=== PATIENT | female | born 1965 | race Hispanic/Latino ===

== ENCOUNTER 2018-02-04 18:20 | Emergency (ER) | payer OTHER, SELFPAY ==
[2018-02-04] MEDS ORDERED: MORPHINE 4 MG/ML SYR ONE (19:18)
[2018-02-04] MEDS ORDERED: ONDANSETRON 4 MG/2 ML VIAL ONE (19:19)
[2018-02-04 19:37] LABS: Absolute Lymphocytes (CBC) 2.6 K/uL (0.7-4.9); Absolute Monocytes 0.4 K/uL (0.1-1.3); Absolute Neutrophil 2.5 K/uL (1.8-8.0); Basophils % 0.6 % (0-1.3); Eosinophils % 4.5 % (0-4.4); Hematocrit 37.3 % (36.0-45.0); Lymphocytes % 44.3 % (15.3-44.8); MCH 29.6 pg (27.0-35.0); MCV 85.7 fL (80-100); Monocytes % 6.7 % (3.3-12.3); RBC Red Blood Cell Count 4.35 M/uL (3.86-4.86)
[2018-02-04 19:38] LABS: Urine Blood TRACE (NEG); Urine Glucose NEGATIVE (NEG); Urine Protein NEGATIVE (NEG); Urine Specific Gravity 1.005 (1.005-1.030)
[2018-02-04 19:43] LABS: Urine Bacteria <20 /HPF (<20); Urine Culture Reflex Order NOT NEEDED; Urine RBC <5 /HPF (NONE SEEN)
[2018-02-04 20:12] LABS: ALT/SGPT 19 U/L (12-78); AST/SGOT 15 U/L (15-37); Albumin 3.9 g/dL (3.4-5.0); Alkaline Phosphatase 67 U/L (45-117); Amylase Level 50 U/L (25-115); BUN Blood Urea Nitrogen 10 mg/dL (7-18); Bicarbonate 27 mmol/L (21-32); Bilirubin Direct < 0.1 mg/dL (0-0.2); Bilirubin Total 0.3 mg/dL (0.2-1.0); Glucose Level 98 mg/dL (74-106); Lipase 153 U/L (73-393); Potassium 3.7 mmol/L (3.5-5.1); Protein, Total 6.9 g/dL (6.4-8.2); Sodium Level 143 mmol/L (136-145)
--- NOTE | 2018-02-04 21:31 | RAD REPORT ---
EXAM DESCRIPTION: CT - Abdomen Pelvis W Contrast - 02/04/2018 9:15 pm CLINICAL HISTORY: Back pain, right lower abdominal pain COMPARISON: CT study November 2014 TECHNIQUE: Biphasic, helical CT imaging of the abdomen and pelvis was performed following 100 ml non -ionic IV contrast. Oral contrast was given. All CT scans are performed using dose optimization technique as appropriate and may include automated exposure control or mA/KV adjustment according to patient size. FINDINGS: No suspicious findings in the lung bases. The liver, spleen, and pancreas show no suspicious findings. Gallbladder and biliary tree are also wi thout suspicious finding. Symmetric renal function is seen with no hydronephrosis or suspicious renal mass. No pyelonephritis o r acute renal process. No urinary bladder abnormality. IUD is in place within a normal-sized uterus. Two fundal faintly enhancing masses are present 2.5 and 2.4 cm in size. These are incidental fibroids . No ovarian or adnexal acute finding. Small 3 centimeter lateral left renal cyst is present. No dilated bowel loops or bowel wall thickening. No appendicitis. No hernia, mass or bulky lymphade nopathy. Small mesenteric lymph nodes are present. No adrenal abnormality. No suspicious bony findings. IMPRESSION: A few small mesenteric lymph nodes are present. No acute abdomen or pelvis finding. Nonacute findings are detailed in the body of the report.
[2018-02-04] MEDS ORDERED: KETOROLAC 30 MG/ML INJ ONE (21:40)
--- NOTE | 2018-02-04 21:45 | EDPHYS ---
Physician Documentation [facility] Name: Rosemary Woodall Age: 52 yrs Sex: Female : 1965 Arrival Date: 02/04/2018 Time: 18:21 Bed 30 Private MD: Claritza Khalil ED Physician Godwin Domingo HPI: 02/04 19:05 This 52 yrs old Female presents to ER via Ambulatory with complaints of jmm Abdominal Pain, Back Pain. 19:05 The patient presents with abdominal pain in the lower abdomen. Onset: The jmm symptoms/episode began/occurred gradually, 3 day(s) ago. The symptoms do not radiate. Associated signs and symptoms: Pertinent negatives: fever, vomiting. This is a 52 year old female with a history of DM that presents to the ED with lower abdominal pain beginning approx 3 days ago. Patient states the pain will come and go. Denies fever, vomiting, or diarrhea. Patient denies history of intraabdominal surgery. . 19:05 Patient states that the previous day she performed heavy lifting. Symptoms are jmm exacerbated with movement.. 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 - Social history:: Smoking status: Patient/guardian denies using tobacco. - Ebola Screening: : Patient denies travel to an Ebola-affected area in the 21 days before illness onset. ROS: 19:05 Constitutional: Negative for fever, chills, and weight loss. jmm 19:05 Cardiovascular: Negative for chest pain. 19:05 Respiratory: Negative for shortness of breath. 19:05 Abdomen/GI: Positive for abdominal pain, Negative for nausea and vomiting. 19:05 Back: Positive for radiated pain. 19:05 All other systems are negative. Exam: 19:05 Head/Face: atraumatic. jmm 19:05 Constitutional: The patient appears in no acute distress, alert, awake. 19:05 Cardiovascular: Rate: normal, Rhythm: regular. 19:05 Respiratory: the patient does not display signs of respiratory distress, Respirations: normal, Breath sounds: are clear throughout. 19:05 Abdomen/GI: Inspection: abdomen appears normal, Bowel sounds: normal, Palpation: soft, mild abdominal tenderness, in the right lower quadrant. 19:05 Musculoskeletal/extremity: ROM: intact in all extremities. 19:05 Skin: Appearance: Color: normal in color. 19:05 Neuro: Orientation: is normal, Mentation: is normal, Memory: is normal. 19:05 Psych: Behavior/mood is pleasant, cooperative. 19:05 Back: pain, that is moderate, of the right low back. [facility] Vital Signs: 18:46 BP 131 / 77; Pulse 70; Resp 18; Temp 98.4(O); Pulse Ox 99% on R/A; Weight 68.04 kg; 1 Height 5 ft. 4 in. (162.56 cm); Pain 9/10; 20:00 BP 123 / 72; Pulse 74; Resp 17; Pulse Ox 99% on R/A; kr2 21:42 BP 117 / 41; Pulse 74; Resp 17; Pulse Ox 99% on R/A; kr2 18:46 Body Mass Index 25.75 (68.04 kg, 162.56 cm) [facility] MDM: 19:05 Differential diagnosis: appendicitis, non-specific abd pain, colitis, muscle strain. [facility] 19:[address] [facility] 21:40 Data reviewed: vital signs, nurses notes, lab test result(s), radiologic studies, CT [facility] scan. Counseling: I had a detailed discussion with the patient and/or guardian regarding: the historical points, exam findings, and any diagnostic results supporting the discharge/admit diagnosis, the presence of at least one elevated blood pressure reading (>120/80) during this emergency department visit, lab results, radiology results, to return to the emergency department if symptoms worsen or persist or if there are any questions or concerns that arise at home. 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 Pain is point tender in the right lower abdomen and right lower lumbar region. Symptoms appear most likely related to musculoskeletal pain. Patient is encouraged to rest and follow up with PCP for further evaluation. Patient is also given early appendicitis return precautions. The patient and family understood and agree with the plan of care. . 02/04 19:08 Order name: Amylase, Serum; Complete Time: 20:30 [facility] 02/04 19:08 Order name: Basic Metabolic Panel; Complete Time: 20:30 [facility] 02/04 19:08 Order name: CBC with Diff; Complete Time: 19:40 [facility] 02/04 19:08 Order name: Creatinine for Radiology; Complete Time: 20:30 [facility] 02/04 19:08 Order name: Hepatic Function; Complete Time: 20:30 [facility] 02/04 19:08 Order name: Lipase; Complete Time: 20:30 [facility] 02/04 19:08 Order name: Urine Test (obtain specimen); Complete Time: 20:32 [facility] 02/04 19:08 Order name: Urine Microscopic Only; Complete Time: 19:46 [facility] 02/04 19:08 Order name: IV Saline Lock; Complete Time: 19:22 [facility] 02/04 19:08 Order name: CT Abd/Pelvis - W/Contrast; Complete Time: 21:36 [facility] 02/04 19:36 Order name: Urine Dipstick--Ancillary (enter results); Complete Time: 19:40 02/04 19:08 Order name: Labs collected and sent; Complete Time: 19:22 [facility] 02/04 19:08 Order name: Urine Dipstick-Ancillary (obtain specimen); Complete Time: 20:32 jmm Administered Medications: 19:21 Drug: morphine 4 mg Route: IVP; Site: right antecubital; kr2 20:16 Follow up: Response: No adverse reaction kr2 19:21 Drug: Zofran 4 mg Route: IVP; Site: right antecubital; kr2 20:16 Follow up: Response: No adverse reaction kr2 21:41 Drug: Ketorolac 30 mg Route: IVP; Site: right antecubital; kr2 21:55 Follow up: Response: No adverse reaction; Pain is decreased kr2 Disposition: 02/04/18 21:45 Discharged to Home. Impression: Abdominal wall strain, Upper abdominal pain, unspecified, Strain of muscle, fascia and tendon of lower back. - Condition is Stable. - Discharge Instructions: Abdominal Pain, Adult. - Prescriptions for ibuprofen 800 mg Oral tablet - take 1 tablet by ORAL route 3 times per day with food; 30 tablet. Cyclobenzaprine 10 mg Oral Tablet - take 1 tablet by ORAL route every 8 hours As needed; 30 tablet. - Medication Reconciliation Form, Thank You Letter, Antibiotic Education, Prescription Opioid Use form. - Follow up: Claritza Khalil; When: 2 - 3 days; Reason: Continuance of care. Addendum: 02/08/2018 07:02 Co-signature as Attending Physician, Godwin Domingo MD. r n Signatures: Dispatcher [employer] EDEvelyn Quevedo RN RN aj1 Brennan Major PA PA jmm Nieto, Roman, MD MD rn Reaves, Karey, RN RN kr2 Corrections: (The following items were deleted from the chart) 02/04 21:56 21:45 02/04/2018 21:45 Discharged to Home. Impression: Abdominal wall strain; Upper kr2 abdominal pain, unspecified; Strain of muscle, fascia and tendon of lower back. Condition is Stable. Forms are Medication Reconciliation Form, Thank You Letter, Antibiotic Education, Prescription Opioid Use. Follow up: Claritzanato Khalil; When: 2 - 3 days; Reason: Continuance of care. grey
--- NOTE | 2018-02-04 21:45 | ER ---
Nurse's Notes [facility] Name: Rosemary Woodall Age: 52 yrs Sex: Female : 1965 Arrival Date: 02/04/2018 Time: 18:21 Bed 30 Private MD: Claritza Khalil Diagnosis: Abdominal wall strain;Upper abdominal pain, unspecified;Strain of muscle, fascia and tendon of lower back Presentation: 02/04 18:44 Presenting complaint: Patient states: lower right quadrant abdominal pain that radiated aj1 to the back and is worse when she changes positions. Denies N/V/D. Denies dysuria, urinary frequency. Transition of care: patient was not received from another setting of care. Onset of symptoms was February 01, 2018. Risk Assessment: Do you want to hurt yourself or someone else? Patient reports no desire to harm self or others. Initial Sepsis Screen: Does the patient meet any 2 criteria? No. Patient's initial sepsis screen is negative. Does the patient have a suspected source of infection? No. Patient's initial sepsis screen is negative. Care prior to arrival: None. 18:44 Method Of Arrival: Ambulatory aj1 18:44 Acuity: JODI 3 aj1 Triage Assessment: 18:46 General: Appears in no apparent distress. comfortable, Behavior is calm, cooperative, aj1 appropriate for age. Pain: Complains of pain in right lower quadrant Pain radiates to right low back Pain currently is 9 out of 10 on a pain scale. Quality of pain is described as sharp. Neuro: Level of Consciousness is awake, alert, obeys commands, Oriented to person, place, time, situation, Speech is normal, Facial symmetry appears normal. Cardiovascular: Patient's skin is warm and dry. Respiratory: Airway is patent Respiratory effort is even, unlabored, Respiratory pattern is regular, symmetrical. GI: Abdomen is non-distended, Reports lower abdominal pain, Patient currently denies diarrhea, nausea, vomiting. : Denies burning with urination, urinary frequency. Derm: Skin is pink, warm \T\ dry. normal. Musculoskeletal: No signs and/or symptoms reported regarding the musculoskeletal system. Amputation of. 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 - Social history:: Smoking status: Patient/guardian denies using tobacco. - Ebola Screening: : Patient denies travel to an Ebola-affected area in the 21 days before illness onset. Screenin:23 Abuse screen: Denies threats or abuse. Denies injuries from another. Nutritional kr2 screening: No deficits noted. Tuberculosis screening: No symptoms or risk factors identified. Fall Risk None identified. Assessment: 19:00 General: Appears in no apparent distress. uncomfortable, well groomed, well developed, kr2 well nourished, Behavior is calm, cooperative, appropriate for age. Pain: Complains of pain in right lower quadrant Pain currently is 5 out of 10 on a pain scale. Quality of pain is described as sharp, shooting, Is continuous, Alleviated by rest, Aggravated by increased activity. Neuro: Level of Consciousness is awake, alert, obeys commands, Oriented to person, place, time, situation, Appropriate for age. Cardiovascular: Capillary refill < 3 seconds in bilateral fingers Patient's skin is warm and dry. Respiratory: Airway is patent Respiratory effort is even, unlabored, Respiratory pattern is regular, symmetrical. : Denies burning with urination. EENT: Nares are clear bilaterally Oral mucosa is moist. Derm: Skin is intact, is healthy with good turgor, Skin is pink, warm \T\ dry. Musculoskeletal: Circulation, motion, and sensation intact. 19:23 GI: Bowel sounds present X 4 quads. Abd is soft X 4 quads Reports lower abdominal pain. kr2 20:00 Reassessment: Patient appears in no apparent distress at this time. Patient and/or kr2 family updated on plan of care and expected duration. Pain level reassessed. Patient is alert, oriented x 3, equal unlabored respirations, skin warm/dry/pink. Patient states feeling better. Patient states symptoms have improved. 21:00 Reassessment: No changes from previously documented assessment. kr2 21:42 Reassessment: Patient appears in no apparent distress at this time. Patient and/or kr2 family updated on plan of care and expected duration. Pain level reassessed. Patient is alert, oriented x 3, equal unlabored respirations, skin warm/dry/pink. Patient states feeling better. Vital Signs: 18:46 BP 131 / 77; Pulse 70; Resp 18; Temp 98.4(O); Pulse Ox 99% on R/A; Weight 68.04 kg; aj1 Height 5 ft. 4 in. (162.56 cm); Pain 9/10; 20:00 BP 123 / 72; Pulse 74; Resp 17; Pulse Ox 99% on R/A; kr2 21:42 BP 117 / 41; Pulse 74; Resp 17; Pulse Ox 99% on R/A; kr2 18:46 Body Mass Index 25.75 (68.04 kg, 162.56 cm) aj1 ED Course: 18:21 Patient arrived in ED. as 18:22 Claritza Khalil is Private Physician. as 18:45 Triage completed. aj1 18:46 Arm band placed on Patient placed in an exam room. aj1 18:49 Brennan Major PA is PHCP. jmm 18:49 Godwin Domingo MD is Attending Physician. jmm 18:59 Jennifer Nevarez, EVELINA is Primary Nurse. kr2 19:24 Patient has correct armband on for positive identification. Bed in low position. Call kr2 light in reach. Side rails up X 1. Pulse ox on. NIBP on. Door closed. Warm blanket given. Head of bed elevated. 19:30 Inserted saline lock: 22 gauge in right antecubital area, using aseptic technique. tt1 Blood collected. 19:47 Inserted saline lock: 22 gauge in left antecubital area, using aseptic technique. aj 21:14 CT completed. Patient moved to CT via wheelchair. Patient moved back from CT. cw1 21:15 CT Abd/Pelvis - W/Contrast In Process Unspecified. EDMS 21:43 Claritza Khalil is Referral Physician. jmm 21:55 No provider procedures requiring assistance completed. IV discontinued, intact, kr2 bleeding controlled, No redness/swelling at site. Pressure dressing applied. Administered Medications: 19:21 Drug: morphine 4 mg Route: IVP; Site: right antecubital; kr2 20:16 Follow up: Response: No adverse reaction kr2 19:21 Drug: Zofran 4 mg Route: IVP; Site: right antecubital; kr2 20:16 Follow up: Response: No adverse reaction kr2 21:41 Drug: Ketorolac 30 mg Route: IVP; Site: right antecubital; kr2 21:55 Follow up: Response: No adverse reaction; Pain is decreased kr2 Outcome: 21:45 Discharge ordered by . shayne 21:55 Discharged to home ambulatory, with family. kr2 21:55 Condition: good 21:55 Discharge instructions given to patient, family, Instructed on discharge instructions, follow up and referral plans. medication usage, Demonstrated understanding of instructions, follow-up care, medications, Prescriptions given X 2. 21:56 Patient left the ED. kr2 Signatures: Dispatcher [employer] EDMS Evelyn Camarena RN RN aj1 Lola Dalton RN RN aj Brennan Major PA PA jmm Martinez, Amelia as Woodley, Crystal cw1 Carla Miles tt1 Jennifer Nevarez RN RN kr2 Corrections: (The following items were deleted from the chart) 20:22 20:20 Inserted saline lock: 22 gauge in right antecubital area, using aseptic tt1 technique. Blood collected. tt1
== END 2018-02-04 21:56 | disposition home or self-care (01) ==
LOC: ER 18:20
DX: S39.011A Strain of muscle, fascia and tendon of abdomen, initial encounter (principal); S39.012A Strain of muscle, fascia and tendon of lower back, initial encounter; X50.0XXA Overexertion from strenuous movement or load, initial encounter; Y93.9 Activity, unspecified; Y92.9 Unspecified place or not applicable; E11.9 Type 2 diabetes mellitus without complications
CPT/HCPCS: 36415; 74177; 80048; 80076; 81003; 81015; 82150; 83690; 85025; 96374; 96375; 99284; J2405; Q9967

== ENCOUNTER 2021-10-20 12:39 | Emergency (ER) | payer OTHER, BC ==
--- OUTSIDE RECORDS SUMMARY | 2021-10-20 12:44 | XMS REPORT | Continuity of Care Document ---
:1965 Author Organization [facility] t Address [address] [place] [address] Care Team Providers Name Role Phone Simran Claritza Pierce Primary Care Physician Simran Attending Clinician Unavailable Nadege Prakash MD Attending Clinician Doctor Unassigned, Name Attending Clinician Unavailable NADEGE PRAKASH Attending Clinician Unavailable Payers Payer Name Policy Type Policy Number Effective Date Expiration Date S aranza [employer] [id number] 2019 00:00:00 Problems Condition Condition Condition Status Onset Resolution Last Treating Co mments Source Name Details Category Date Date Treatment Clinician Date Postmenopa Postmenopa Disease Active U nivers usal usal 9-08 ity of bleeding bleeding 00:00: [address] Obesity Obesity Disease Active Univers (BMI (BMI 6-24 ity of 30-39.9) 30-39.9) 00:00: [address] Allergies, Adverse Reactions, Alerts Allergy Allergy Status Severity Reaction(s) Onset Inactive Treating Comm ents Source Name Type Date Date Clinician NO KNOWN Drug Active Univers ALLERGIE Class ity of S [facility] Social History Social Habit Start Date Stop Date Quantity Comments Source Exposure to Not sure [facility] SARS-CoV-2 (event) Medica l Branch Alcohol intake 2021-04-15 2021-04-15 0 /d [facility] 00:00:00 00:00:00 [facility] Sex Ass[birth year] [facility] of [place] 00:00:00 00:00:00 Medical Branch Smoking Status Start Date Stop Date Source Never smoker [facility] Medical Branch Medications Ordered Filled Start Stop Current Ordering Indication Dosage Frequency Signature Comments Components Source Medication Medication Date Date Medication? Clinician (SIG) Name Name miSOPROStoL 2020-08 Yes Take 1 Univ ers 200 mcg 1-02 tablet by ity of tablet 00:00: mouth the [place] night Medical before Branch procedure and 1 tablet by mouth the morning of procedure. miSOPROStoL 2020-08 Yes Take 1 Univ ers 200 mcg 1-02 tablet by ity of tablet 00:00: mouth the [place] night Medical before Branch procedure and 1 tablet by mouth the morning of procedure. miSOPROStoL 2020-08 Yes Take 1 Univ ers 200 mcg 1-02 tablet by ity of tablet 00:00: mouth the [place] night Medical before Branch procedure and 1 tablet by mouth the morning of procedure. miSOPROStoL 2020-08 Yes Take 1 Univ ers 200 mcg 1-02 tablet by ity of tablet 00:00: mouth the [place] night Medical before Branch procedure and 1 tablet by mouth the morning of procedure. No known No Univers medications 9-08 ity of 18:11: [place] 40 [facility] Meloxicam Meloxicam 2018-08- No Claritza [address] [facility] 0-09 01-07 [facility] MetFORMIN MetFORMIN Yes Claritza [address] [facility] HCl ER HCl ER 8-04 [place] [facility] - 00:[facility]: evening [facility] 00 meal [facility] Immunizations Ordered Filled Immunization Date Status Comments [facility] e Immunization Name Name SARS-COV-2 COVID-19 2020-11-11 Completed Unive rsity of PFIZER VACCINE 00:00:00 [facility] SARS-COV-2 COVID-19 2020-11-11 Completed Unive rsity of PFIZER VACCINE 00:00:00 [facility] SARS-COV-2 COVID-19 2020-11-11 Completed Unive rsity of PFIZER VACCINE 00:00:00 [facility] SARS-COV-2 COVID-19 2020-11-11 Completed Unive rsity of PFIZER VACCINE 00:00:00 [facility] SARS-COV-2 COVID-19 2020-11-11 Completed Unive rsity of PFIZER VACCINE 00:00:00 [facility] SARS-COV-2 COVID-19 2020-10-21 Completed Unive rsity of PFIZER VACCINE 00:00:00 [facility] SARS-COV-2 COVID-19 2020-10-21 Completed Unive rsity of PFIZER VACCINE 00:00:00 [facility] SARS-COV-2 COVID-19 2020-10-21 Completed Unive rsity of PFIZER VACCINE 00:00:00 [facility] SARS-COV-2 COVID-19 2020-10-21 Completed Unive rsity of PFIZER VACCINE 00:00:00 [facility] SARS-COV-2 COVID-19 2020-10-21 Completed Unive rsity of PFIZER VACCINE 00:00:00 [facility] Flucelvax - single Flucelvax - single 2019-05-[address] [facility] - dose syringe dose syringe 00:00:00 [facility] Influenza Virus 2016-10-18 Completed Universit y of Vaccine Quad ID 00:00:00 [facility] 1864 [facility] 2016-10-18 Completed University of 00:00:00 [facility] Influenza Virus 2016-10-18 Completed Universit y of Vaccine Quad ID 00:00:00 [facility] 1864 [facility] TD 2016-10-18 Completed University of 00:00:00 [facility] Influenza Virus 2016-10-18 Completed Universit y of Vaccine Quad ID 00:00:00 [facility] 1864 [facility] TDAP 2016-10-18 Completed University of 00:00:00 [facility] Influenza Virus 2016-10-18 Completed Universit y of Vaccine Quad ID 00:00:00 [facility] 1864 [facility] TDAP 2016-10-18 Completed University of 00:00:00 [facility] Influenza Virus 2016-10-18 Completed Universit y of Vaccine Quad ID 00:00:00 [facility] 1864 [facility] TDAP 2016-10-18 Completed University of 00:00:00 [facility] Procedures Procedure Date / Time Performing Clinician Source Performed EXTERNAL PROVIDER 2021-06-19 06:01:00 Doctor Unassigned, No Univ [facility] of [place] RECORDS Name Medical Branch AUTHORIZATION FOR 2021-06-12 05:01:00 Doctor Cosmo, No Univ [facility] RELEASE OF PHI Name Medical Branch Encounters Start End Encounter Admission Attending Care Care Encounter Source Date/Time Date/Time Type Type Clinicians Facility Department ID 2021-09-02 Outpatient MELANIE Khalil [facility] 14:18[facility]47 [id number] [facility] 2021-09-02 Outpatient MELANIE Khalil [facility] 10[facility]59:45 Clar[facility]za [id number] [facility] 2021-07-07 2021-07-07 ambulatory [facility] [id number] [facility] 2021-06-30 2021-06-30 ambulatory [facility] [id number] [facility] 2021-06-22 2021-06-22 Telephone Alfonso Prakash [facility] [id number] Univers 00:00:00 00:00:00 Cam [place] [id number] [id number] [id number] Nv dical [address] 2021-06-19 2021-06-19 Orders Doctor RADHA [id number] Univers 00:00:00 00:00:00 Only Unassigned, [place] [id number] ity of [place] [facility] [id number] Sanjiv as [id number] [address] 2021-06-12 2021-06-12 Orders Doctor RADHA [id number] Univers 00:00:00 00:00:00 Only Unassigned, [place] [id number] ity of [place] [facility] [id number] Sanjiv as [id number] [address] 2021-06-09 2021-06-09 ambulatory [facility] [id number] [facility] 2021-06-08 2021-06-08 Telephone Alfonso Prakash [facility] [id number] Univers 00:00:00 00:00:00 Cam [place] [id number] [id number] [id number] [address] 2021-05-20 2021-05-20 Outpatient [facility] [id number] [facility] 2021-05-04 2021-05-04 Outpatient R OLINDA [facility] [id number] Univers 09:30:00 09:30:00 [id number] ity [facility] 2021-05-04 2021-05-04 Outpatient R OLINDA [facility] [id number] Univers 09:30:00 09:30:00 ity [facility] 2021-04-29 2021-04-29 [facility] [id number] Univers 00:00:00 00:00:00 [place] [id number] i [id number] [id number] [address] 2021-04-24 2021-04-24 Outpatient R OLINDA [facility] [id number] Univers 00:00:00 00:00:00 [id number] ity [facility] 2021-04-24 2021-04-24 Outpatient R OLINDA [facility] [id number] Univers 00:00:00 00:00:00 ity [facility] 2021-04-15 2021-04-15 Outpatient R OLINDA [facility] [id number] Univers 13:30:00 14:25:44 ity [facility] 2021-04-15 2021-04-15 Outpatient R OLINDA [facility] [id number] Univers 13:30:00 13:30:00 [id number] ity [facility] 2021-04-15 2021-04-15 Outpatient ALFONSO [facility] [id number] Univers 13:30:00 13:30:00 ity [facility] 2021-03-17 2021-03-17 Outpatient ALFONSO [facility] [id number] Univers 13:30:00 13:30:00 [id number] ity [facility] 2021-03-17 2021-03-17 Outpatient Mary PRAKASH [facility] [id number] Univers 13:30:00 13:30:00 ity [facility] 2020-05-07 2020-05-07 Outpatient [facility] [id number] [facility]00 [facility] Outpati ent Clinics 2020-03-19 2020-03-19 Outpatient Mary PRAKASH [facility] [id number] Univers 13:40:00 13:40:00 [id number] ity [facility] 2020-03-19 2020-03-19 Outpatient ALFONSO [facility] [id number] Univers 00:00:00 00:00:00 ity [facility] 2020-03-05 2020-03-05 [facility] [id number] Univers 15:00:00 15:00:00 ity [facility] 2019-09-11 2019-09-11 [facility] [id number] 08:40:00 08:40:00 [facility] Medicine Outpati ent Clinics 2019-06-04 2019-06-04 [facility] [id number] 16:50:00 16:50:00 [facility] Medicine Outpati ent Clinics 2019-05-16 2019-05-16 [facility] [id number] [facility] 11:00:00 11:00:00 t [facility] Medicine Outpati ent Clinics Results This patient has no known results.
[2021-10-20] MEDS ORDERED: KETOROLAC 30 MG/ML INJ ONE (13:27)
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
[2021-10-20 14:47] VITALS: BP 131/69; TEMP 98.9; O2SAT 99
== END 2021-10-20 14:24 | disposition home or self-care (01) ==
LOC: ER 12:39
DX: S16.1XXA Strain of muscle, fascia and tendon at neck level, initial encounter (principal); V49.40XA Driver injured in collision with unspecified motor vehicles in traffic accident, initial encounter; E11.9 Type 2 diabetes mellitus without complications
CPT/HCPCS: 96372; 99283